=== PATIENT | female | born 1955 | race Caucasian/White ===

== ENCOUNTER → 2018-05-16 | Outpatient (CLI) | payer BC ==
[2015-03-05 09:56] VITALS: BP 139/72
[~2018-05-16] MED LIST: CHOL200074 PO; IBUP-1027 PO; IBUP-1060 PO; LANS15TA6 PO; ROPI0.254 PO; SIMV20TA3 PO; [UNRECOGNIZED DRUG - OTHER]; lansoprazole
--- NOTE | 2018-05-16 12:38 | KCIC ---
Bilateral digital screening mammograms: Reason for examination: Routine screening. Comparison is made to previous studies dated 06/24/2016 and 01/23/2015. Interpretation was made with the benefit of CAD. The skin and nipples show no abnormalities. No abnormal axillary lymph nodes are seen. The breast parenchyma shows scattered fibroglandular density. (Breast density: Category B.) There are no dominant masses, suspicious calcifications or architectural distortions. Biopsy clip remains present on the right. Impression: No evidence of malignancy. Recommend routine screening. BI-RADS Category 1: Negative. "Our facility is accredited by the [employer]ammography [employer]." This patient's information has been entered into a reminder system for the patient to be notified with the results of her examination and a target date for the next mammogram. Electronically signed by: Ana Andres MD (05/16/2018 12:34 PM) [id number]
== END | disposition home or self-care (01) ==
LOC: KCIC MAMMO 10:14
PROVIDERS: ATTEND Family Medicine
DX: Z12.31 Encounter for screening mammogram for malignant neoplasm of breast (principal); E78.00 Pure hypercholesterolemia, unspecified; Z85.3 Personal history of malignant neoplasm of breast
CPT/HCPCS: 77067

== ENCOUNTER → 2018-09-19 | Outpatient (CLI) | payer BC ==
[2015-03-05 09:56] VITALS: BP 139/72
--- NOTE | 2018-09-19 12:56 | KCIC ---
Indication: Neuralgia. Neuritis for 2 1/2 weeks in the bilateral hands, fingertips, left hip and into foot. TECHNIQUE: Multiple views of the cervical and lumbar spine COMPARISON: None FINDINGS: Cervical spine: There is reversal of normal cervical lordosis. This could be due to muscle spasm or positioning. Mild anterolisthesis of C6 relative to C5. Atlantoaxial joint or is preserved. Prevertebral soft tissues within normal limits. Intervertebral disc space narrowing at C5-C6. Facet joints are in normal anatomic alignment. Visualized lung apices are clear. Lumbar spine: Lumbar spine is in normal anatomic alignment. No compression deformities. Intervertebral disc space narrowing seen at L5-S1. No significant facet arthropathy. SI joints within normal limits. IMPRESSION: 1. Moderate C5-C6 degenerative disc disease. 2. Moderate L5-S1 degenerative disc disease. Electronically signed by: Vamshi Hernández DO (09/19/2018 12:51 PM) [id number]
== END | disposition home or self-care (01) ==
LOC: KCIC 11:11
PROVIDERS: ATTEND Nurse Practitioner Family
DX: M51.37 Other intervertebral disc degeneration, lumbosacral region (principal); M50.322 Other cervical disc degeneration at C5-C6 level; M48.02 Spinal stenosis, cervical region
CPT/HCPCS: 72040; 72100

== ENCOUNTER → 2019-06-12 | Outpatient (CLI) | payer BC ==
[2015-03-05 09:56] VITALS: BP 139/72
[2019-06-12 11:39] LABS: ALBUMIN 4.3 g/dL (3.4-5.0); ALBUMIN/GLOBULIN RATIO 1.1 (1.0-1.7); CALCIUM 9.3 mg/dL (8.5-10.1); CREATININE 0.8 mg/dL (0.6-1.0); GFR 72.9; POTASSIUM 3.7 mmol/L (3.5-5.1); TOTAL BILIRUBIN 0.5 mg/dL (0.2-1.0); TOTAL PROTEIN 8.3 g/dL (6.4-8.2)
[2019-06-12 11:40] LABS: CHOLESTEROL/HDL RATIO 7.2
== END | disposition home or self-care (01) ==
LOC: LAB 11:01
PROVIDERS: ATTEND Nurse Practitioner Family
DX: Z13.220 Encounter for screening for lipoid disorders (principal); Z13.1 Encounter for screening for diabetes mellitus
CPT/HCPCS: 36415; 80053; 80061

== ENCOUNTER → 2019-06-25 | Outpatient (CLI) | payer BC ==
[2015-03-05 09:56] VITALS: BP 139/72
[~2019-06-25] MED LIST changes: +SIMV20TA18 PO; -SIMV20TA3 PO
[2019-06-26 00:07] LABS: HEMOGLOBIN A1C 8.5 % (4.8-5.6)
== END | disposition home or self-care (01) ==
LOC: LAB 12:15
PROVIDERS: ATTEND Nurse Practitioner Family
DX: R73.01 Impaired fasting glucose (principal)
CPT/HCPCS: 36415; 83036

== ENCOUNTER → 2019-08-27 | Outpatient (CLI) | payer BC ==
[2015-03-05 09:56] VITALS: BP 139/72
--- NOTE | 2019-08-27 11:23 | KCIC ---
EXAM: Dual energy x-ray absorptiometry (DEXA). HISTORY: Postmenopausal female presents for osteoporosis screening. COMPARISON: None. TECHNIQUE: Dual energy x-ray absorptiometry of the lumbar spine and left hip was performed. Calculation of bone mineral density based on standard deviations above or below the expected young adult normal value (T-score) was completed. FINDINGS: The average bone mineral density in the 1st through 4th lumbar vertebrae is 0.967 g/cmxcm, corresponding with a T-score of -0.7. The average total bone mineral density in the left hip is 0.885 g/cmxcm, corresponding with a T-score of -0.5. IMPRESSION: Normal bone mineral density. Note: Definitions established by the World Health Organization: 1. Normal: T-score is -1.0 or above. 2. Osteopenia: T-score is between -1.0 and -2.5 . 3. Osteoporosis: T-score is -2.5 or below. Electronically signed by: Laverne Griffin MD (08/27/2019 11:21 AM) [facility]
--- NOTE | 2019-08-28 11:16 | KCIC ---
Bilateral digital screening mammograms Reason for examination: Routine screening. History of left breast cancer status post treatment 2002. Comparison is made to previous study dated May 16, 2018 and priors Routine CC and MLO digital views obtained. Interpretation was made with the benefit of CAD. The skin and nipples show no abnormalities. No abnormal lymph nodes are seen. The breast parenchyma is scattered fibroglandular elements. (Breast density: Category B.) There are no suspicious masses, suspicious calcifications or architectural distortions. Impression: Negative mammogram. Recommend routine screening. BI-RADS Category 1: Negative. "Our facility is accredited by the [employer]amm[employer]." This patient's information has been entered into a reminder system for the patient to be notified with the results of her examination and a target date for the next mammogram. Electronically signed by: Ricky Chen MD (08/28/2019 11:13 AM) [id number]
== END | disposition home or self-care (01) ==
LOC: KCIC DEXA 10:02
PROVIDERS: ATTEND Nurse Practitioner Family
DX: Z12.31 Encounter for screening mammogram for malignant neoplasm of breast (principal); Z13.820 Encounter for screening for osteoporosis; Z85.3 Personal history of malignant neoplasm of breast; Z78.0 Asymptomatic menopausal state
CPT/HCPCS: 77067; 77080

== ENCOUNTER → 2020-09-16 | Outpatient (CLI) | payer BC ==
[2015-03-05 09:56] VITALS: BP 139/72
[~2020-09-16] MED LIST changes: +LIDOCAINE 2%/EPI 1:100,000 20 ML VIAL. INJ ONE
--- NOTE | 2020-09-16 16:47 | RAD ---
DATE: 09/16/2020 3:32 PM EXAM: MAMMO [facility] SCREENING BILATERAL HISTORY: Screening COMPARISON: 08/27/2019 Bilateral CC and MLO views of the breasts were performed. Bilateral breast tomosynthesis was performed in CC and MLO projections. This study was interpreted with the benefit of Computerized Aided Detection (CAD). FINDINGS: Breast Density: SCATTERED The breast parenchyma shows scattered fibroglandular densities. Breast parenchyma level B No suspicious masses, microcalcifications or architectural distortion is present to suggest malignancy in either breast. The visualized axillae are unremarkable. IMPRESSION: No mammographic evidence of malignancy. BI-RADS CATEGORY: 1 NEGATIVE RECOMMENDED FOLLOW-UP: 12M 12 MONTH FOLLOW-UP Annual screening mammography is recommended, unless clinically indicated sooner based on symptoms or change in physical exam. PQRS compliance statement: Patient information was entered into a reminder system with a target due date for the next mammogram. Mammography is a sensitive method for finding small breast cancers, but it does not detect them all and is not a substitute for careful clinical examination. A negative mammogram does not negate a clinically suspicious finding and should not result in delay in biopsying a clinically suspicious abnormality. "Our facility is accredited by the [employer] Mammography [employer]."
== END ==
LOC: MAMMO 15:28
PROVIDERS: ATTEND Family Medicine
DX: Z12.31 Encounter for screening mammogram for malignant neoplasm of breast (principal)
CPT/HCPCS: 77063; 77067

== ENCOUNTER → 2021-11-03 | Outpatient (CLI) | payer BC ==
[2015-03-05 09:56] VITALS: BP 139/72
[~2021-11-03] MED LIST changes: -LIDOCAINE 2%/EPI 1:100,000 20 ML VIAL. INJ ONE
--- NOTE | 2021-11-04 12:09 | RAD ---
Bilateral digital screening 2-D and 3-D (digital breast tomosynthesis) mammogram: Reason for examination: Routine screening. History of left breast carcinoma with lumpectomy in 2002, radiation therapy, and chemotherapy. Comparison: Mammograms from 09/16/2020, 08/27/2019, May 16, 2018. Interpretation was made with the benefit of CAD. FINDINGS: Breast density: Category B. There are scattered areas of fibroglandular density. No suspicious breast mass, malignant appearing calcifications, or architectural distortion is seen. T here are stable post therapeutic changes on the left. IMPRESSION: No evidence of malignancy. Assessment: BI-RADS 1. Negative. Recommendation: Routine screening mammograms. The patient will receive a letter with the results in the mail. Patient information will be entered i nto the mammography reminder system with a target recall date for the next mammogram. A reminder chami er will be generated. Electronically signed by: Elen Calle MD (11/04/2021 12:07 PM) [id number]
== END ==
LOC: MAMMO 12:00
PROVIDERS: ATTEND Family Medicine
DX: Z12.31 Encounter for screening mammogram for malignant neoplasm of breast (principal)
CPT/HCPCS: 77063; 77067